=== PATIENT | male | born 1950 | race Caucasian/White ===

== ENCOUNTER 2025-06-02 18:34 | Emergency (ER) | payer SELFPAY ==
--- NOTE | 2025-06-02 18:54 | ED.GENMED ---
Addendum entered and electronically signed by Maryam Alexander, DO 06/02/25 20:54:
I called the [facility] office and spoke with Bola to relay patient information. Patient's body is released
Addendum entered and electronically signed by Maryam Alexander, DO 06/02/25 20:22:
I reviewed events of the day with nurse practitioner Elmo from primary care office. She was able to speak with the patient's primary care physician, Dr. Courtney, who will sign the certificate
Original Note:
History of Present Illness
General
Chief Complaint: CODE
Time Seen by Provider: 06/02/25 18:54
Nursing documentation reviewed up to this point in time: agreed with
History of Present Illness
History of Present Illness:
75-year-old male brought to the ER by EMS for evaluation of cardiac arrest. Patient is unable to provide any history as he is unstable. Paramedics report that patient had been witnessed to fall to the ground by neighbors. CPR was not initiated
until EMS arrival. Patient was asystole on arrival. He was intubated prehospital and had blood in his airway during intubation. 9 rounds of epinephrine were provided prehospital along with continuous CPR. Patient was witnessed without return of
spontaneous regulation for 70 minutes prior to arrival in the ER
In speaking to the family after his arrival, they report that he had been in his usual state of health without any recent complaints. He does have a prior history of hypertension. No prior history of [place]. No reported recent illness. They had been
spending time together as a family as his brother was in town visiting.
Phy Exam
Physical Exam
Physical Exam:
Patient is unresponsive, agonal respirations, respirations provided by 7.5 ET tube present in the oropharynx, breath sounds are coarse bilaterally with bag ventilations, absent heart sounds, abdomen is soft, obese, not distended, extremities are
cool, pulses are palpable during CPR only, GCS is 3
Course
Orders/Labs/Results
Orders:
Orders
06/02/25 18:55
EPINEPHrine [Adrenalin 1 mg/10 ml] 1 mg .ROUTE .STK-MED ONE
Labs are considered but not ordered given overall grim prognosis
MDM/Problems Addressed
Differential Diagnosis Includes:
Differential diagnosis considered but not limited to ACS, PE, along with other etiologies considered
*Pulse Oximetry
Patient hypoxic: not evaluated
*[employer] Interpretation
Rate: bradycardiac (I independently viewed and interpreted rhythm strip showing wide-complex agonal rhythm)
*Critical Care Note
Total Time (30-74mins, 75-104mins- exclusive of procedures): See physician note
comment:
Critical care statement: A total of 30 minutes of critical care time was provided for this patient. This includes management of unstable vital signs, evaluation of the patient at bedside, reviewing the patient's pertinent medical records, discussion
with consultants, review of old EKGs and review of pertinent medical records. This time with separate from time utilized to perform the aforementioned documented procedures
Update Note
Update Note:
CPR in progress en route to the ER. Patient had been asystole/PEA throughout prehospital interaction and ER evaluation. PEA present on the monitor. Bedside ultrasound performed showing no effective cardiac activity. CPR discontinued. Patient
pronounced at 1838. Multiple family members are present including and brother, I relayed information regarding patient to family. They have no additional questions at the current time.
ED Attending Note
-
Portions of this chart may have been created with voice recognition software.� Occasional wrong word or��sound alike� substitutions may have occurred due to the inherent limitations of voice recognition software.
Discharge Plan
Departure
Patient Disposition:
Date of Disposition: 06/02/25
Time of Disposition: 18:54
Discharge Problem:
Cardiac arrest
Interventions
Interventions:
*Risk Screen - Suicide Last Done: 06/02/25 18:43
*General Assessment Last Done: 06/02/25 18:43
*Neglect/Abuse Screening Last Done: 06/02/25 18:43
*ED COVID-19 Vaccine History Last Done: 06/02/25 18:43
Discharge Date and Time
Print Language: FRENCH
== END 2025-06-02 23:13 | disposition expired ==
LOC: EMR 18:34
PROVIDERS: EMERGENCY PHYSICIAN Emergency Medicine; FAMILY PHYSICIAN Family Medicine
DX: I46.9 Cardiac arrest, cause unspecified (principal); W19.XXXA Unspecified fall, initial encounter; I10 Essential (primary) hypertension; E78.5 Hyperlipidemia, unspecified; M19.90 Unspecified osteoarthritis, unspecified site
CPT/HCPCS: 99291; 92950